=== PATIENT | female | born 1940 | race Caucasian/White ===

== ENCOUNTER 2017-12-03 02:50 | Emergency (ER) | payer MEDICARE ==
[~2017-12-03] VITALS: Ht 172.7 cm; Wt 90.7 kg
== END 2017-12-03 12:28 | disposition expired ==
LOC: EDBD 02:50 → EDSEX 02:50 → ER 03:00
DX: I46.9 Cardiac arrest, cause unspecified (principal); E78.5 Hyperlipidemia, unspecified; I10 Essential (primary) hypertension
CPT/HCPCS: 92950